=== PATIENT | female | born 1960 | race Caucasian/White ===

== ENCOUNTER 2016-06-05 10:48 | Day surgery (SDC) | payer OTHER ==
[~2016-06-05 10:48] MED LIST: RINGERS SOLUTION,LACTATED 1,000 ML IV PRN
--- OUTSIDE RECORDS SUMMARY | 2016-06-05 10:51 | XMS REPORT | Continuity of Care Document ---
:1960 Demographics Phone Unavailable Preferred Language Unknown Marital Status Unknown Jainism Affiliation Unknown Race Unknown Ethnic Group Unknown Author Organization [facility] ([facility]) Address [place] [address] Phone [phone] Care Team Providers Name Role Phone Unavailable Primary Care Provider Unavailable Source Comments This disclosure is being made pursuant to the Care Everywhere program, applicable federal and state laws, and may not contain all informaitonavailable regarding this patient.[facility] ([facility]) Active Allergies and Adverse Reactions Not on File Current Medications Not on file Active Problems Not on file Social History Tobacco Use Types Packs/Day Years Used Date Never Assessed Plan of Care Health Maintenance Due Date Last Done Comments HCV Screening 1960 Hepatitis B Vaccine (1 of 3 - Primary Series) 1960 Tdap Vaccine 1973 Lipid Disorder Screening 1980 MMR Vaccine 1980 Td Vaccine 1980 Cervical Cancer Screening 1992 Mammogram 2002 Colonoscopy 04/27/2012 Influenza Vaccine: Seasonal (#1) 11/05/2015 Results from Last 3 Months Not on file
[2016-06-05 11:04] LABS: Hematocrit 46.5 % (37.0-47.0); Hemoglobin 15.5 gm/dL (12.5-16.0); Mean Cell Volume 94.3 fl (78-100); Mean Corpuscular Hemoglobin 31.4 pg (27-31); Mean Corpuscular Hgb Conc 33.3 g/dl (32-36); Mean Platelet Volume 9.9 fl (6.0-9.5); Neutrophil # 4.2 K/mm3 (1.3-6.0); Neutrophil % 59.9 % (42-75.0); Platelet Count 242 K/mm3 (150-450); Red Blood Count 4.93 M/mm3 (4.2-5.4); Red Cell Distribution Width 12.7 % (11.5-14.0); White Blood Count 6.9 K/mm3 (4.0-10.5)
[2016-06-05] MEDS ORDERED: RINGERS SOLUTION,LACTATED 1,000 ML IV ONE ×3 (11:59→16:30)
[2016-06-05 13:03] LABS: Albumin * 4.3 gm/dl (3.4-5.0); BUN/Creatinine Ratio 12.2 (9.0-21.6); Bilirubin, Total 0.5 mg/dL (0.0-1.1); Calcium * 9.6 mg/dL (7.9-10.9); Carbon Dioxide 27.6 mmol/L (24-32.6); Potassium 4.6 mmol/L (3.4-4.6); Total Protein 8.7 gm/dL (6.2-8.2)
[2016-06-05] MEDS ORDERED: BUPIVACAINE HCL 50 ML VIAL IJ ONE ×2 (15:01)
[2016-06-05] MEDS ORDERED: RINGERS SOLUTION,LACTATED 1,000 ML IV PRN (18:36)
[2016-06-05] MEDS ORDERED: IBUPROFEN 800 MG TABLET PO ONE (18:36)
[2016-06-05] MEDS ORDERED: HYDROcodone/ACETAMINOPHEN 1 EACH TABLET PO PRN (18:38)
--- NOTE | 2016-06-05 18:58 | OR ---
Operative Report - Dictated Report Narrative: DATE OF PROCEDURE: 06/05/2016 PROCEDURE: 1. Laparoscopic bilateral salpingo-oophorectomy. 2. Lysis of adhesion (120 min) ANESTHESIA: General, endotracheal intubation. PREOPERATIVE DIAGNOSES: 1. Large left ovarian cysts. 2. Pelvic pain 3. RLQ pain. POSTOPERATIVE DIAGNOSES: 1. Large left ovarian endometriotic cysts (at least 15 x 10 x 10 cm combined) 2. Left ovarian endometriosis 3. Dense pelvic adhesions 4. Pelvic pain 5. RLQ pain. SURGEON: Analisa Null M.D. SENIOR PROCESS ENGINEER: Alvaro ([employer]) FINDINGS: 1. Large left ovarian chocolate cysts at least 15 x 10 x 10 cm in combined dimensions, with thick chocolate paste content, and with dense adhesions to the pelvic side wall and posterior cul-de-sac. 2. Right ovary and both fallopian tubes appeared normal. SPECIMENS: 1. Pelvic washing. 2. Left ovary and tube. 3. Right ovary and tube. DRAINS: None. URINE OUTPUT: 200 ml BLOOD LOSS: 100 ml INTRAOPARATIVE IV FLUIDS: 2100 ml COMPLICATIONS: None. DESCRIPTION OF PROCEDURE: The patient was consented prior to the operation and taken to the operating room. She was placed on the operating table supine. SCDs were placed on her lower extremities. General anesthesia was induced. She was repositioned in the dorsal lithotomy position. Her right arm was tucked at her side under the drape. Exam under anesthesia revealed a normal size uterus, but I was unable to feel any pelvic mass. The abdomen was prepped with Chloraprep and the vagina was prepped with Betadine. She was draped in the usual sterile fashion. A time-out procedure was conducted to confirm the correct patient for the correct procedure. After time-out, a bivalve speculum was placed into the vagina. The cervix was visualized. The vagina and the cervix were prepped with Betadine one more time. The anterior cervix was grasped with a single-tooth tenaculum. The uterus was sounded to 5 cm, limited to the cervix only. The cervix was dilated, but unable to reach the endometrial cavity. It was decided not to place a Zumi uterine manipulator at this time. The single tooth tenaculum and the bivalve speculum were removed. A sponge stick was placed into the vagina. The surgeon then changed gloves and attention was paid to the abdomen. A small vertical incision was made at the upper edge of the umbilicus. A Veress needle was inserted into the abdominal cavity. Intraabdominal placement was confirmed with a saline drop test and with low entry pressure of 2 mmHg. The abdomen was insufflated with CO2 gas to an intraabdominal pressure of 15 mmHg. The Veress needle was removed. A 5 mm trocar with the laparoscope was inserted through the umbilicus incision into the abdomen. Intraabdominal placement was confirmed with the laparoscope. Survey of the entry site revealed no trauma to the underlying structures. Survey of the upper abdomen revealed a normal- appearing liver. The patient was then placed in Trendelenburg position. Three trocars were placed in the lower abdomen. A right lower quadrant trocar (5 mm) was placed 2 cm above and 2 cm medial to the anterior superior iliac spine to avoid the inferior epigastric vessels. A suprapubic trocar (5 mm) was placed in the midline. A left lower quadrant trocar (12 mm) was also placed. All trocars were placed under the direct visualization of the laparoscope. Survey of the pelvis revealed the findings noted above. At this point, the pelvis was irrigated with saline and pelvic washing was obtained. Attention was now turned to the left side. The left fallopian tube was elevated. The left IP ligament was divided with the Thunderbeat. The division was carried on broad ligament underneath the ovary and tube. There was dense adhesions between the left ovary and the pelvic side wall and posterior cul-de-sac. The adhesions were carefully dissected using both blunt and sharp techniques. During the dissections, the ovarian cysts ruptured and released thick chocolate-like paste. The dissections were quite difficult due to the dense fibrotic adhesions and the large size of the cysts. A laparoscopic fan retractor (Endo Retract) was placed through the 12 mm trocar to help with retraction of the sigmoid colon. Finally, the uteroovarian ligament and the tube were divided with the Thunderbeat. The left ovary and tube were dissected out without complications. A large endobag was inserted through the 12 mm trocar site. The left ovary and tube were placed inside the endobag and removed through the 12 mm trocar site in a piecemeal fashion. A Flood catheter was placed in the middle of the procedure due to the distended bladder. Next, attention was paid to the right side. The right fallopian tube was elevated. The right IP ligament was divided with the Thunderbeat. The division was carried on broad ligament underneath the ovary and tube. The uteroovarian ligament and the tube were divided with the Thunderbeat. An endobag was inserted through the 12 mm trocar site. The right ovary and tube were placed inside the endobag and removed through the 12 mm trocar site. The pelvis was thoroughly irrigated with saline. Hemostasis was assured. The patient was taken out of Trendelenburg and extra fluid was suctioned out from the abdomen and pelvis. Three lower abdominal trocars were removed. The abdomen was deflated. The trocar at the umbilicus was removed together with the laparoscope. The fascia of the 12 mm trocar was closed with 0 vicryl suture on a UR-6 needle. The subQ was closed with 3-0 vicryl interrupted. The skin incisions were closed with 4-0 Monocryl suture and the skin was covered with Steri-Strips. The incision was infiltrated with 2 to 3 cc of 0.25% Marcaine for post op pain management. The Flood catheter was removed at the end of the procedure. The patient tolerated the procedure well. All counts were correct and the patient was taken to the recovery room in stable condition. Analisa Null MD
[2016-06-05] MEDS ORDERED: IBUPROFEN 800 MG TABLET ONE (19:41)
[2016-06-05 20:42] VITALS: BP 169/78
== END 2016-06-05 10:49 | disposition home or self-care (01) ==
LOC: AMB 10:48
PROVIDERS: ATTEND Obstetrics & Gynecology
PROC: 0UT74ZZ Resection of Bilateral Fallopian Tubes, Percutaneous Endoscopic Approach (ICD-10-PCS; 2016-06-05)
PROC: 0UNF4ZZ Release Cul-de-sac, Percutaneous Endoscopic Approach (ICD-10-PCS; 2016-06-05)
PROC: 0UN14ZZ Release Left Ovary, Percutaneous Endoscopic Approach (ICD-10-PCS; 2016-06-05)
PROC: 0UT24ZZ Resection of Bilateral Ovaries, Percutaneous Endoscopic Approach (ICD-10-PCS; principal; 2016-06-05 14:10)
DX: N83.292 Other ovarian cyst, left side (principal); N80.1 Endometriosis of ovary; N73.6 Female pelvic peritoneal adhesions (postinfective); I10 Essential (primary) hypertension; K21.9 Gastro-esophageal reflux disease without esophagitis; E03.9 Hypothyroidism, unspecified; D64.9 Anemia, unspecified; Z68.36 Body mass index [BMI] 36.0-36.9, adult